=== PATIENT | male | born 1950 | race Caucasian/White ===

== ENCOUNTER → 2018-01-26 | Outpatient (CLI) | payer MEDICARE, BC ==
[~2018-01-26] MED LIST: ASPI-663 PO; ASPI-757 PO; CLAR-1 PO; ESOM40CA42 PO; FAM20 PO; FLU180SY11 IM; FLU60SYR30 IM ONLY; HCTZ25 PO; HYDR-2966 PO; LEV500 PO; LISI5TAB25 PO; LOR5/325 PO; OMEP-218 PO; PHENA100 PO; PNEI IJ; ROBC PO
== END ==
LOC: LAB 09:28
PROVIDERS: ATTEND Internal Medicine
DX: R79.0 Abnormal level of blood mineral (principal)
CPT/HCPCS: 36415; 82728; 83540; 83550